=== PATIENT | female | born 1950 | race Caucasian/White ===

== ENCOUNTER 2022-05-18 08:39 | Observation (INO) ==
[2022-05-18] MEDS ORDERED: diazePAM 5 MG TABLET PO ONE (09:26)
[2022-05-18] MEDS ORDERED: predniSONE 20 MG TABLET PO ONE (09:26)
[2022-05-18 12:01] LABS: Bacteria,Urine Few per hpf (None-Few); Bilirubin,Urine Negative (Negative); Blood,Urine Negative (Negative); Clarity,Urine Turbid (Clear); Color,Urine Light-Yellow (Yellow); Glucose,Urine (UA) Normal (Normal); Ketones,Urine Negative (Negative); Leukocyte Esterase,Urine Large (Negative); Nitrite,Urine Negative (Negative); PH,Urine 6.5 pH Units (5.0-8.0); Protein,Urine Trace mg/dL (Neg-Trace); RBC,Urine 15-30 per hpf (0-3); Renal Epithelial Cells,Urine Few per hpf (None-Few); Specific Gravity,Urine 1.007 (1.010-1.025); Squamous Epithelial Cell,Urine Moderate per hpf (None-Few); Transitional Epi Cells,Urine Few per hpf (None-Few); Urobilinogen,Urine Normal (Normal); WBC,Urine TNTC per hpf (0-3)
[2022-05-18] MEDS ORDERED: Morphine Sulfate 2 MG/ML SYRINGE IVP ONE (12:34)
[2022-05-18] MEDS ORDERED: Ondansetron 4 MG/2 ML VIAL IVP ONE (12:34)
[2022-05-18] MEDS ORDERED: cefTRIAXone 1,000 MG in 0.9 % Sodium Chloride 10 ML IVP ONE (12:36)
[2022-05-18 14:50] LABS: Alanine Aminotransferase 13 Units/L (7-52); Albumin 4.1 g/dL (3.5-5.7); Albumin/Globulin Ratio 1.3 (1.1-2.2); Alkaline Phosphatase 124 Units/L (34-104); Aspartate Amino Transferase 18 Units/L (13-39); BUN/Creatinine Ratio 16 (6-26); Bilirubin,Total 0.5 mg/dL (0.3-1.0); Blood Urea Nitrogen 12 mg/dL (8-23); Calcium 9.4 mg/dL (8.6-10.3); Carbon Dioxide 27 mEq/L (23-29); Chloride 94 mEq/L (98-107); Globulin 3.1 g/dL (2.4-3.5); Glucose 146 mg/dL (70-105); Osmolality,Calculated 272 (280-300); Potassium 3.8 mEq/L (3.5-5.1); Sodium 130 mEq/L (136-145); Total Protein 7.2 g/dL (6.4-8.9); eGFR For African Americans > 60 (> 60); eGFR For Non-African Americans > 60 (> 60)
[2022-05-18 14:51] LABS: Basophils % 0.2 %; Hematocrit 39.7 % (35.3-44.9); Hemoglobin 13.3 g/dL (11.5-15.4); Immature Granulocytes % 0.5 % (0-4); Lymphocytes # 0.3 K/mcL (0.6-4.6); Lymphocytes % 5.5 %; Mean Corpuscular HGB Conc 33.5 g/dL (31.6-35.5); Mean Corpuscular Hemoglobin 28.1 pg (28.0-33.3); Mean Corpuscular Volume 83.8 fL (83.0-100.0); Mean Platelet Volume 8.6 fL (9.4-12.4); Monocytes # 0.1 K/mcL (0.0-1.3); Platelet Count 276 K/mcL (140-400); Red Blood Count 4.74 M/mcL (3.82-4.97); Red Cell Distribution Width 14.2 % (11.5-14.5); Segmented Neutrophils % 91.8 %; White Blood Count 5.5 K/mcL (4.3-11.1)
[2022-05-18] MEDS ORDERED: Acetaminophen 325 MG TABLET PO PRN (15:39)
[2022-05-18] MEDS ORDERED: Ibuprofen 400 MG TABLET PO ONE (15:42)
[2022-05-18] MEDS ORDERED: Ondansetron 4 MG/2 ML VIAL IVP PRN (15:42)
[2022-05-18] MEDS ORDERED: Naloxone 0.4 MG/ML INJ IVP PRN (15:42)
[2022-05-18] MEDS ORDERED: Iopamidol - 370 500 ML MLS IVP ONE (16:54)
[2022-05-18] MEDS: Morphine Sulfate 2 MG/ML SYRINGE IVP PRN (20:14)
[2022-05-19] MEDS: Morphine Sulfate 2 MG/ML SYRINGE IVP PRN ×3 (03:22→21:18)
[2022-05-19] MEDS: cefTRIAXone 1,000 MG in 0.9 % Sodium Chloride 10 ML IVP SCH (07:37)
[2022-05-19 12:34] LABS: Carcinoembryonic Antigen 4.3 ng/mL (Less than 5.0)
[2022-05-19] MEDS: *HR* HYDROcodone/Acet 5/325 mg TABLET PO PRN (22:59)
[2022-05-20] MEDS: Morphine Sulfate 2 MG/ML SYRINGE IVP PRN (02:11)
[2022-05-20] MEDS: *HR* OxyCODONE Immed Rel 5 MG TABLET PO PRN ×3 (04:26→23:20)
[2022-05-20] MEDS: cefTRIAXone 1,000 MG in 0.9 % Sodium Chloride 10 ML IVP SCH (09:17)
[2022-05-20] MEDS: *HR* HYDROcodone/Acet 5/325 mg TABLET PO PRN ×2 (09:17→17:18)
[2022-05-20] MEDS ORDERED: Lidocaine -MPF 2% 2 ML VIAL ONE (14:23)
[2022-05-20] MEDS ORDERED: *HR* Propofol 200 MG/20 ML VIAL IVP ONE (14:23)
[2022-05-20 19:31] VITALS: O2SAT 94
[2022-05-20 23:06] VITALS: BP 135/74; PULSE 77; TEMP 98
[2022-05-21] MEDS ORDERED: *HR* Enoxaparin 40 MG/0.4 ML SYRINGE SQ SCH (06:00)
== END 2022-05-21 01:04 | disposition short-term general hospital (02) ==
LOC: 3ANU 08:39 → EMEROOARM 08:39 → 3ANU 16:30
PROVIDERS: ADMIT Student in an Organized Health Care Education/Training Program; ATTEND Student in an Organized Health Care Education/Training Program
PROC: ENDOEBX (2022-05-20 15:00)